=== PATIENT | male | born 1965 | race African-American/Black ===

== ENCOUNTER 2016-12-27 20:17 | Emergency (ER) | payer SELFPAY ==
[~2016-12-27] VITALS: Ht 185.4 cm; Wt 108.0 kg
[~2016-12-27 20:17] MED LIST: HYDR-3138 PO
[2016-12-27] MEDS ORDERED: SODIUM CHLORIDE 0.9% 1,000ML IVBOLUS ONE (22:00)
[2016-12-27 22:27] LABS: BLOOD UREA NITROGEN 18 mg/dL (7-18)
[2016-12-27 22:31] LABS: IS PT STATUS REG ER OR PRE ER? YES
[2016-12-27 23:26] VITALS: BP 135/76
== END 2016-12-27 23:59 | disposition home or self-care (01) ==
LOC: ED 23:53
DX: R55 Syncope and collapse (principal); J44.9 Chronic obstructive pulmonary disease, unspecified; F12.10 Cannabis abuse, uncomplicated; Z95.0 Presence of cardiac pacemaker
CPT/HCPCS: 36415; 70450; 71010; 80048; 82040; 84484; 85025; 93005; 96360; 96361; 99285; J7030

== ENCOUNTER 2017-11-20 14:55 | Emergency (ER) | payer SELFPAY ==
[~2017-11-20] VITALS: Ht 185.4 cm; Wt 100.0 kg
[~2017-11-20 14:55] MED LIST changes: -HYDR-3138 PO; +HYDR-3237 PO
[2017-11-20 14:57] VITALS: BP 176/94
[2017-11-20 15:21] LABS: BASOPHILS # (AUTO) 0.04 x10^3/uL (0-0.1); BASOPHILS % (AUTO) 0 % (0-1); EOSINOPHILS # (AUTO) 0.12 x10^3/uL (0-0.4); EOSINOPHILS % (AUTO) 1 % (1-7); LYMPHOCYTES # (AUTO) 1.46 x10^3/uL (1-3.4); LYMPHOCYTES % (AUTO) 11 % (22-44); MD NO; MEAN CORPUSCULAR HEMOGLOBIN 30.5 pg (27.5-34.5); MEAN CORPUSCULAR HGB CONC 33.7 g/dL (33.2-36.2); MEAN CORPUSCULAR VOLUME 90.5 fL (81-97); MEAN PLATELET VOLUME 7.7 fL (7.4-10.4); MONOCYTES # (AUTO) 0.66 x10^3/uL (0.2-0.8); MONOCYTES % (AUTO) 5 % (2-9); NEUTROPHILS # (AUTO) 10.93 x10^3/uL (1.8-6.8); NEUTROPHILS % (AUTO) 83 % (42-75); PLATELET COUNT 271 x10^3/uL (130-400); RED CELL DISTRIBUTION WIDTH 13.5 % (9.4-14.8)
[2017-11-20] MEDS ORDERED: MORPHINE SULFATE 4 MG/ML, 1ML IVPush PRN (15:30)
[2017-11-20] MEDS ORDERED: ONDANSETRON 2MG/ML, 2ML IVPush ONE (15:30)
[2017-11-20 15:37] LABS: ALANINE AMINOTRANSFERASE 29 U/L (12-78); ALBUMIN 4.5 g/dL (3.4-5.0); ANION GAP 9 mmol/L (5-15); CALCIUM 9.7 mg/dL (8.5-10.1); CHLORIDE 102 mmol/L (98-107); CREATININE 1.26 mg/dL (0.7-1.3)
[2017-11-20 15:39] LABS: ALKALINE PHOSPHATASE 74 U/L (45-117); BILIRUBIN,TOTAL 0.3 mg/dL (0.2-1.0); TOTAL PROTEIN 8.2 g/dL (6.4-8.2)
== END 2017-11-20 20:13 | disposition left against medical advice (07) ==
LOC: ED 20:07
DX: R10.13 Epigastric pain (principal)
CPT/HCPCS: 36415; 74021; 80053; 83690; 85025; 99285

== ENCOUNTER 2018-09-05 19:59 | Inpatient (IN) | payer OTHER ==
[~2018-09-05] VITALS: Ht 185.4 cm; Wt 100.0 kg
[2018-09-05] MEDS ORDERED: SODIUM CHLORIDE FLUSH 10ML SYR IVF ONE (20:30)
[2018-09-05] MEDS ORDERED: SODIUM CHLORIDE 0.9% 1,000ML IVBOLUS ONE (20:30)
[2018-09-05] MEDS ORDERED: ONDANSETRON 2MG/ML, 2ML IVPush ONE (20:30)
[2018-09-05 20:44] LABS: BASOPHILS # (AUTO) 0.03 x10^3/uL (0-0.1); BASOPHILS % (AUTO) 1 % (0-1); EOSINOPHILS # (AUTO) 0.03 x10^3/uL (0-0.4); EOSINOPHILS % (AUTO) 1 % (1-7); LYMPHOCYTES # (AUTO) 1.16 x10^3/uL (1-3.4); LYMPHOCYTES % (AUTO) 18 % (22-44); MD NO; MEAN CORPUSCULAR HEMOGLOBIN 30.4 pg (27.5-34.5); MEAN CORPUSCULAR HGB CONC 33.9 g/dL (33.2-36.2); MEAN CORPUSCULAR VOLUME 89.6 fL (81-97); MEAN PLATELET VOLUME 7.8 fL (7.4-10.4); MONOCYTES % (AUTO) 11 % (2-9); NEUTROPHILS # (AUTO) 4.54 x10^3/uL (1.8-6.8); NEUTROPHILS % (AUTO) 70 % (42-75); PLATELET COUNT 261 x10^3/uL (130-400); RED BLOOD COUNT 5.12 x10^6/uL (4.38-5.82); RED CELL DISTRIBUTION WIDTH 14.2 % (9.4-14.8)
[2018-09-05 20:55] LABS: ALANINE AMINOTRANSFERASE 37 U/L (12-78); ALBUMIN 4.2 g/dL (3.4-5.0); ANION GAP 7 mmol/L (5-15); CALCIUM 9.7 mg/dL (8.5-10.1); CHLORIDE 106 mmol/L (98-107); CREATININE 1.02 mg/dL (0.7-1.3)
[2018-09-05 20:58] LABS: ALKALINE PHOSPHATASE 79 U/L (45-117); BILIRUBIN,TOTAL 0.5 mg/dL (0.2-1.0); TOTAL PROTEIN 8.1 g/dL (6.4-8.2)
[2018-09-05] MEDS ORDERED: OMNIPAQUE 350 MG/ML, 100ML BOTTLE ONE (21:54)
[2018-09-05] MEDS: LACTATED RINGERS 1,000 ML IV SCH (22:30)
[2018-09-05] MEDS ORDERED: BUPIVACAINE/PF-EPI 0.5% 1:200K ONE (22:42)
[2018-09-05 22:46] LABS: INTERNATIONAL NORMALIZED RATIO 1.01 (0.93-1.1); PROTHROMBIN TIME 10.7 Seconds (9.6-11.5)
[2018-09-05] MEDS ORDERED: MIDAZOLAM 1 MG/ML, 2ML ONE (23:00)
[2018-09-05] MEDS ORDERED: FENTANYL PF 250 MCG/5ML ONE (23:00)
[2018-09-05] MEDS ORDERED: ROCURONIUM 10 MG/ML,10ML ONE (23:17)
[2018-09-05] MEDS ORDERED: PROPOFOL 10 MG/ML, 50ML ONE (23:17)
[2018-09-05] MEDS ORDERED: CEFOTETAN 2 GM ONE (23:17)
[2018-09-05] MEDS ORDERED: ONDANSETRON 2MG/ML, 2ML ONE (23:17)
[2018-09-05] MEDS ORDERED: DEXAMETHASONE 4 MG/ML, 1ML ONE (23:17)
[2018-09-05] MEDS ORDERED: SUCCINYLCHOLINE 20 MG/ML, 10ML ONE (23:17)
[2018-09-05] MEDS ORDERED: BUPIVACAINE/PF-EPI 0.5% 1:200K IM ONE (23:38)
[2018-09-06] MEDS ORDERED: FENTANYL PF 100 MCG/2ML IV PRN
[2018-09-06] MEDS ORDERED: ONDANSETRON ODT 8 MG PO PRN
[2018-09-06] MEDS ORDERED: OXYcodone 5 MG/5 ML ORAL.SOL UDC PO PRN
[2018-09-06] MEDS ORDERED: PROMETHAZINE 12.5 MG SUPP PR PRN
[2018-09-06] MEDS ORDERED: LABETALOL 5MG/ML, 20ML IV PRN
[2018-09-06] MEDS ORDERED: ONDANSETRON 2MG/ML, 2ML IV PRN
[2018-09-06] MEDS ORDERED: hydrALAzine 20 MG/ML, 1ML IV PRN
[2018-09-06] MEDS: HYDROmorphone 1 MG/ML, 1ML IV PRN ×3 (00:45→01:01)
[2018-09-06] MEDS ORDERED: HYDROmorphone 2 MG/ML, 1ML ONE (00:45)
[2018-09-06] MEDS ORDERED: FENTANYL PF 100 MCG/2ML ONE (00:49)
[2018-09-06 04:31] VITALS: BP 150/85
[2018-09-06] MEDS: LACTATED RINGERS 1,000 ML IV SCH ×3 (04:37→10:05)
[2018-09-06] MEDS ORDERED: DIPHENHYDRAMINE 25 MG CAPSULE PO PRN (05:00)
[2018-09-06] MEDS ORDERED: DIPHENHYDRAMINE 50 MG/ML, 1ML IVPush PRN (05:00)
[2018-09-06] MEDS ORDERED: MORPHINE SULFATE 4 MG/ML, 1ML IVPush PRN (05:00)
[2018-09-06] MEDS ORDERED: ONDANSETRON 2MG/ML, 2ML IVPush PRN (05:00)
[2018-09-06] MEDS: KETOROLAC 30 MG/1 ML IVPush SCH ×2 (05:33→10:07)
[2018-09-06] MEDS: ACETAMINOPHEN 500 MG TABLET PO SCH ×3 (05:33→17:23)
[2018-09-06 06:18] LABS: BASOPHILS # (AUTO) 0.02 x10^3/uL (0-0.1); BASOPHILS % (AUTO) 0 % (0-1); EOSINOPHILS # (AUTO) 0.08 x10^3/uL (0-0.4); EOSINOPHILS % (AUTO) 1 % (1-7); LYMPHOCYTES # (AUTO) 1.75 x10^3/uL (1-3.4); LYMPHOCYTES % (AUTO) 19 % (22-44); MD NO; MEAN CORPUSCULAR HEMOGLOBIN 30.2 pg (27.5-34.5); MEAN CORPUSCULAR HGB CONC 33.1 g/dL (33.2-36.2); MEAN CORPUSCULAR VOLUME 91.1 fL (81-97); MEAN PLATELET VOLUME 7.7 fL (7.4-10.4); MONOCYTES # (AUTO) 0.86 x10^3/uL (0.2-0.8); MONOCYTES % (AUTO) 9 % (2-9); NEUTROPHILS # (AUTO) 6.64 x10^3/uL (1.8-6.8); NEUTROPHILS % (AUTO) 71 % (42-75); PLATELET COUNT 233 x10^3/uL (130-400); RED CELL DISTRIBUTION WIDTH 14.3 % (9.4-14.8)
[2018-09-06 06:33] LABS: ANION GAP 7 mmol/L (5-15); CALCIUM 9.1 mg/dL (8.5-10.1); CHLORIDE 107 mmol/L (98-107)
[2018-09-06 06:36] LABS: CREATININE 1.31 mg/dL (0.7-1.3)
[2018-09-06 08:46] VITALS: BP 136/88
[2018-09-06 14:00] VITALS: BP 123/78
[2018-09-06 18:45] VITALS: BP 124/78
[2018-09-06 19:07] LABS: MICROSCOPIC AUTO
[2018-09-06 19:09] LABS: CULTURE INDICATED? NO
[2018-09-07] MEDS: ACETAMINOPHEN 500 MG TABLET PO SCH ×2 (00:10→06:07)
[2018-09-07 01:25] VITALS: BP 111/69
[2018-09-07 05:25] LABS: BASOPHILS # (AUTO) 0.02 x10^3/uL (0-0.1); BASOPHILS % (AUTO) 0 % (0-1); EOSINOPHILS # (AUTO) 0.13 x10^3/uL (0-0.4); EOSINOPHILS % (AUTO) 2 % (1-7); LYMPHOCYTES # (AUTO) 1.69 x10^3/uL (1-3.4); LYMPHOCYTES % (AUTO) 27 % (22-44); MD NO; MEAN CORPUSCULAR HEMOGLOBIN 30.8 pg (27.5-34.5); MEAN CORPUSCULAR HGB CONC 33.9 g/dL (33.2-36.2); MEAN PLATELET VOLUME 7.9 fL (7.4-10.4); MONOCYTES # (AUTO) 0.67 x10^3/uL (0.2-0.8); MONOCYTES % (AUTO) 11 % (2-9); NEUTROPHILS # (AUTO) 3.85 x10^3/uL (1.8-6.8); NEUTROPHILS % (AUTO) 61 % (42-75); PLATELET COUNT 218 x10^3/uL (130-400); RED BLOOD COUNT 4.59 x10^6/uL (4.38-5.82); RED CELL DISTRIBUTION WIDTH 13.8 % (9.4-14.8)
[2018-09-07 05:33] LABS: CHLORIDE 106 mmol/L (98-107)
[2018-09-07 05:43] LABS: ANION GAP 6 mmol/L (5-15); CALCIUM 8.7 mg/dL (8.5-10.1); CREATININE 1.08 mg/dL (0.7-1.3)
[2018-09-07 06:45] VITALS: BP 112/76
[2018-09-07] MEDS ORDERED: HYDR-3240 PO (09:46)
[2018-09-07] MEDS ORDERED: OXYC-302 PO (09:50)
== END 2018-09-07 10:00 | disposition home or self-care (01) | DRG 337 ==
LOC: ED 20:12 → EDIP 22:22 → 4NOR 09-06 01:44
PROVIDERS: ADMIT Colon & Rectal Surgery; ATTEND Colon & Rectal Surgery
PROC: 0DNU4ZZ Release Omentum, Percutaneous Endoscopic Approach (ICD-10-PCS; principal; 2018-09-06)
DX: K56.50 Intestinal adhesions [bands], unspecified as to partial versus complete obstruction (principal); I10 Essential (primary) hypertension; K56.2 Volvulus; J44.9 Chronic obstructive pulmonary disease, unspecified; Z95.0 Presence of cardiac pacemaker; Z87.828 Personal history of other (healed) physical injury and trauma; Z90.49 Acquired absence of other specified parts of digestive tract
CPT/HCPCS: 36415; 99291; J3490; 74177; 80048; 80053; 81001; 83605; 83690; 83735; 85025; 85610; 93005; 96360; G0378; J1100; J1170; J1885; J2250; J2405; J2704; J3010; Q9967; J0330; J7030; J7120